=== PATIENT | male | born 1955 | race Caucasian/White ===

== ENCOUNTER → 2019-09-14 | Outpatient (REF) | payer BC ==
[2019-09-14 19:44] LABS: PROSTATIC SPECIFIC AG MONITOR 4.3 NG/ML (< 4.00)
== END ==
LOC: M LABDRWAD 19:20
DX: R97.20 Elevated prostate specific antigen [PSA] (principal)

== ENCOUNTER → 2020-04-11 | Outpatient (REF) | payer BC | LOC: M LABDRWAD 16:26 | PROVIDERS: ATTEND Urology | DX: R97.20 Elevated prostate specific antigen [PSA] (principal) ==

== ENCOUNTER → 2020-05-17 | Outpatient (REF) | payer BC ==
[2020-05-17 14:28] LABS: ALBUMIN 3.5 GM/DL (3.2-5.2); ALT/SGPT 29 U/L (12-78); BILIRUBIN,TOTAL 0.8 MG/DL (0.2-1.0); BLOOD UREA NITROGEN 14 MG/DL (7-18); CALCIUM LEVEL 9.2 MG/DL (8.8-10.2); CARBON DIOXIDE LEVEL 31 MEQ/L (21-32); CHLORIDE LEVEL 105 MEQ/L (98-107); CHOLESTEROL LEVEL 193 MG/DL (<200); CHOLESTEROL RISK RATIO 4.707 (<5); CREATININE FOR GFR 0.93 MG/DL (0.70-1.30); GLOMERULAR FILTRATION RATE > 60.0 (>49); GLUCOSE, FASTING 83 MG/DL (70-100); HDL CHOLESTEROL 41 MG/DL (>40); LDL CHOLESTEROL 128 MG/DL (<100); NON-HDL-C 152 MG/DL; POTASSIUM SERUM 4.7 MEQ/L (3.5-5.1); SODIUM LEVEL 139 MEQ/L (136-145); TOTAL PROTEIN 6.4 GM/DL (6.4-8.2); TRIGLYCERIDES LEVEL 121 MG/DL (<150)
[2020-05-17 15:09] LABS: HEPATITIS C VIRUS ABY INDEX 0.2 INDEX (<0.8)
[2020-05-17 15:24] LABS: HEMOGLOBIN A1c 5.3 %
== END ==
LOC: M LABDRWAD 12:07
DX: E78.00 Pure hypercholesterolemia, unspecified (principal); I10 Essential (primary) hypertension; Z13.1 Encounter for screening for diabetes mellitus; Z20.5 Contact with and (suspected) exposure to viral hepatitis

== ENCOUNTER → 2020-09-14 | Outpatient (REF) | payer BC ==
[2020-09-14 17:29] LABS: PROSTATIC SPECIFIC AG MONITOR 4.95 NG/ML (< 4.00)
== END ==
LOC: M LABDRWAD 16:31
PROVIDERS: ATTEND Urology
DX: R97.20 Elevated prostate specific antigen [PSA] (principal)

== ENCOUNTER → 2021-10-04 | Outpatient (REF) | payer MEDICARE, BC ==
[2021-10-04 12:45] LABS: HEMATOCRIT 52.5 % (42.0-52.0); HEMOGLOBIN 17.5 g/dl (13.5-17.5); MEAN CORPUSCULAR HGB CONC 33.3 g/dl (32.0-36.5); MEAN CORPUSCULAR VOLUME 84.1 fl (80.0-96.0); PLATELET COUNT, AUTOMATED 282 10^3/uL (150-450); RED BLOOD COUNT 6.24 10^6/uL (4.30-6.10); WHITE BLOOD COUNT 6.9 10^3/uL (4.0-10.0)
[2021-10-04 13:00] LABS: HEMOGLOBIN A1c 5.3 %
[2021-10-04 13:14] LABS: ALBUMIN 3.5 GM/DL (3.2-5.2); ALT/SGPT 30 U/L (12-78); BILIRUBIN,TOTAL 0.8 MG/DL (0.2-1.0); BLOOD UREA NITROGEN 19 MG/DL (7-18); CALCIUM LEVEL 8.8 MG/DL (8.8-10.2); CARBON DIOXIDE LEVEL 33 MEQ/L (21-32); CHLORIDE LEVEL 103 MEQ/L (98-107); CHOLESTEROL LEVEL 185 MG/DL (<200); CREATININE FOR GFR 1.14 MG/DL (0.70-1.30); FREE T4 0.87 NG/DL (0.76-1.46); GLOMERULAR FILTRATION RATE > 60.0 (>49); GLUCOSE, FASTING 92 MG/DL (70-100); HDL CHOLESTEROL 37 MG/DL (>40); LDL CHOLESTEROL 130 MG/DL (<100); NON-HDL-C 148 MG/DL; POTASSIUM SERUM 4.7 MEQ/L (3.5-5.1); SODIUM LEVEL 139 MEQ/L (136-145); TOTAL PROTEIN 6.3 GM/DL (6.4-8.2); TRIGLYCERIDES LEVEL 90 MG/DL (<150)
[2021-10-04 13:21] LABS: MALB URINE SIEMENS 19.1 MG/L; MAU/CREAT RATIO 11.4 MCG/MG (0.0-30.0)
== END ==
LOC: M SFHCADAM 09:37
PROVIDERS: ATTEND Physician Assistant
DX: Z12.5 Encounter for screening for malignant neoplasm of prostate (principal); Z13.220 Encounter for screening for lipoid disorders; I10 Essential (primary) hypertension; Z13.1 Encounter for screening for diabetes mellitus
CPT/HCPCS: 80053; 80061; 82043; 83036; 84439; 84443; 85027; G0103

== ENCOUNTER → 2021-11-15 | Outpatient (REF) | payer MEDICARE, BC | LOC: M SFHCADAM 10:26 | PROVIDERS: ATTEND Physician Assistant | DX: R97.20 Elevated prostate specific antigen [PSA] (principal) ==

== ENCOUNTER 2022-01-08 08:51 | Inpatient (IN) | payer BC, MEDICARE ==
[~2022-01-08] VITALS: Ht 182.9 cm; Wt 129.6 kg
[2022-01-08] MEDS ORDERED: CLON-589 PO (08:59)
[2022-01-08] MEDS ORDERED: TAMS1CAP17 PO (08:59)
[2022-01-08] MEDS ORDERED: LOSA100T5 PO (08:59)
[2022-01-08] MEDS ORDERED: AMLO1TAB24 PO (08:59)
[2022-01-08] MEDS ORDERED: PRED20TA PO (08:59)
[2022-01-08] MEDS ORDERED: CEPH500C PO (08:59)
[2022-01-08] MEDS ORDERED: cefTRIAXone SOD 1 GM in D5W MINI-BAG PLUS 50 ML IV ONE (09:20)
[2022-01-08 09:44] LABS: BASO % 0.2 % (0.0-1.0); HEMATOCRIT 48.6 % (42.0-52.0); HEMOGLOBIN 16.4 g/dl (13.5-17.5); LYMPH # 0.6 10^3/uL (1.5-5.0); LYMPH % 5.4 % (24.0-44.0); MEAN CORPUSCULAR HEMOGLOBIN 29.3 pg (27.0-33.0); MEAN CORPUSCULAR HGB CONC 33.7 g/dl (32.0-36.5); MEAN CORPUSCULAR VOLUME 86.8 fl (80.0-96.0); MONO # 0.8 10^3/uL (0.0-0.8); MONO % 6.5 % (2.0-8.0); NEUTROPHILS # 10.1 10^3/uL (1.5-8.5); NEUTROPHILS % 87.6 % (36.0-66.0); PLATELET COUNT, AUTOMATED 221 10^3/uL (150-450); WHITE BLOOD COUNT 11.6 10^3/uL (4.0-10.0)
[2022-01-08 10:16] LABS: ALBUMIN 2.6 GM/DL (3.2-5.2); BILIRUBIN,DIRECT 0.1 MG/DL (0.0-0.2); BILIRUBIN,TOTAL 0.4 MG/DL (0.2-1.0); C REACTIVE PROTEIN QUANTITATIV 6.92 MG/DL (0.00-0.30); ERYTHROCYTE SEDIMENTATION RATE 12 mm/hr (0-20); TOTAL PROTEIN 5.6 GM/DL (6.4-8.2)
[2022-01-08] MEDS ORDERED: NS 1,000 ML IV ONE (10:25)
[2022-01-08 11:33] LABS: RSV AMPLIFICATION NEGATIVE (NEGATIVE)
[2022-01-08] MEDS ORDERED: VANCOMYCIN HCL 1,000 MG, VIAL MATE ADAPTER 1 EACH in NS 250 ML IV SCH (11:40)
[2022-01-08] MEDS ORDERED: PERCOCET 5MG/325MG TAB PO PRN ×2 (12:00)
[2022-01-08] MEDS: NS 1,000 ML IV SCH ×2 (12:00→23:22)
[2022-01-08] MEDS ORDERED: HYDR2.5C TOP (12:10)
[2022-01-08] MEDS ORDERED: HOME MED LIST COMPLETE! XX SCH (12:15)
[2022-01-08] MEDS: PIPERACILLIN/TAZOBACTAM SOD 3.375 GM in D5W MINI-BAG PLUS 50 ML IV SCH ×2 (13:00→18:31)
[2022-01-08 14:50] VITALS: BP 128/75
[2022-01-08] MEDS ORDERED: VANCOMYCIN HCL 1,000 MG, VIAL MATE ADAPTER 1 EACH in NS 250 ML IV ONE ×2 (15:00→16:00)
[2022-01-08 19:13] LABS: INR 0.98; PROTHROMBIN TIME 13.4 SECONDS (12.7-14.5)
[2022-01-08 19:14] LABS: PARTIAL THROMBOPLASTIN TIME 28.5 SECONDS (25.9-37.0)
[2022-01-08] MEDS: amLODIPine 5 MG TAB PO SCH (21:19)
[2022-01-08] MEDS: TAMSULOSIN 0.4 MG CAP PO SCH (21:19)
[2022-01-08] MEDS: cloNIDine 0.05MG 1/2 TABLET PO SCH (21:19)
[2022-01-08 22:00] VITALS: BP 127/68
[2022-01-09] MEDS: PIPERACILLIN/TAZOBACTAM SOD 3.375 GM in D5W MINI-BAG PLUS 50 ML IV SCH ×4 (01:53→18:45)
[2022-01-09] MEDS: VANCOMYCIN HCL 750 MG, VIAL MATE ADAPTER 1 EACH in D5W 250 ML IV SCH ×7 (05:47→23:01)
[2022-01-09 06:24] VITALS: BP 124/76
[2022-01-09 06:40] LABS: HEMATOCRIT 45.6 % (42.0-52.0); HEMOGLOBIN 15.1 g/dl (13.5-17.5); MEAN CORPUSCULAR HEMOGLOBIN 28.8 pg (27.0-33.0); MEAN CORPUSCULAR HGB CONC 33.1 g/dl (32.0-36.5); PLATELET COUNT, AUTOMATED 219 10^3/uL (150-450); RED BLOOD COUNT 5.24 10^6/uL (4.30-6.10)
[2022-01-09 07:24] LABS: ALBUMIN 2.4 GM/DL (3.2-5.2); ALT/SGPT 76 U/L (12-78); BILIRUBIN,TOTAL 0.5 MG/DL (0.2-1.0); BLOOD UREA NITROGEN 16 MG/DL (7-18); CALCIUM LEVEL 7.7 MG/DL (8.8-10.2); CARBON DIOXIDE LEVEL 29 MEQ/L (21-32); CHLORIDE LEVEL 106 MEQ/L (98-107); CREATININE FOR GFR 1.08 MG/DL (0.70-1.30); GLOMERULAR FILTRATION RATE > 60.0 (>49); GLUCOSE, FASTING 94 MG/DL (70-100); POTASSIUM SERUM 3.7 MEQ/L (3.5-5.1); SODIUM LEVEL 141 MEQ/L (136-145); TOTAL PROTEIN 5.2 GM/DL (6.4-8.2)
[2022-01-09 09:00] VITALS: BP 143/73
[2022-01-09] MEDS: cloNIDine 0.05MG 1/2 TABLET PO SCH ×2 (09:04→21:02)
[2022-01-09] MEDS: LOSARTAN 50MG TABLET PO SCH (09:04)
[2022-01-09] MEDS: ENOXAPARIN 40MG/0.4ML SYRINGE (J1650 PER 10MG) SC SCH (09:05)
[2022-01-09] MEDS: TAMSULOSIN 0.4 MG CAP PO SCH ×2 (09:05→21:02)
[2022-01-09 14:00] VITALS: BP 130/80
[2022-01-09] MEDS: ACETAMINOPHEN TAB 650MG DOSE (2X325MG) PO PRN ×2 (15:48→21:02)
[2022-01-09] MEDS ORDERED: PREVNAR 13 VACCINE SYRINGE IM.IMMUN ONE (18:00)
[2022-01-09 21:00] VITALS: BP 131/75
[2022-01-09] MEDS: amLODIPine 5 MG TAB PO SCH (21:01)
[2022-01-10] MEDS: PIPERACILLIN/TAZOBACTAM SOD 3.375 GM in D5W MINI-BAG PLUS 50 ML IV SCH ×4 (01:31→18:13)
[2022-01-10 06:49] VITALS: BP 141/92
[2022-01-10 07:01] LABS: HEMATOCRIT 47.3 % (42.0-52.0); HEMOGLOBIN 15.4 g/dl (13.5-17.5); MEAN CORPUSCULAR HEMOGLOBIN 28.5 pg (27.0-33.0); MEAN CORPUSCULAR HGB CONC 32.6 g/dl (32.0-36.5); MEAN CORPUSCULAR VOLUME 87.4 fl (80.0-96.0); PLATELET COUNT, AUTOMATED 220 10^3/uL (150-450); RED BLOOD COUNT 5.41 10^6/uL (4.30-6.10)
[2022-01-10 07:38] LABS: ALBUMIN 2.3 GM/DL (3.2-5.2); ALT/SGPT 93 U/L (12-78); BILIRUBIN,TOTAL 0.7 MG/DL (0.2-1.0); BLOOD UREA NITROGEN 15 MG/DL (7-18); CALCIUM LEVEL 8.3 MG/DL (8.8-10.2); CARBON DIOXIDE LEVEL 30 MEQ/L (21-32); CHLORIDE LEVEL 104 MEQ/L (98-107); CREATININE FOR GFR 1.22 MG/DL (0.70-1.30); GLOMERULAR FILTRATION RATE > 60.0 (>49); GLUCOSE, FASTING 83 MG/DL (70-100); POTASSIUM SERUM 3.9 MEQ/L (3.5-5.1); SODIUM LEVEL 138 MEQ/L (136-145); TOTAL PROTEIN 5.2 GM/DL (6.4-8.2)
[2022-01-10] MEDS: VANCOMYCIN HCL 750 MG, VIAL MATE ADAPTER 1 EACH in D5W 250 ML IV SCH ×3 (08:41→23:38)
[2022-01-10] MEDS: ENOXAPARIN 40MG/0.4ML SYRINGE (J1650 PER 10MG) SC SCH (08:42)
[2022-01-10] MEDS: cloNIDine 0.05MG 1/2 TABLET PO SCH ×2 (08:42→20:20)
[2022-01-10] MEDS: LOSARTAN 50MG TABLET PO SCH (08:43)
[2022-01-10] MEDS: TAMSULOSIN 0.4 MG CAP PO SCH ×2 (08:43→20:20)
[2022-01-10 14:15] VITALS: BP 133/73
[2022-01-10] MEDS: amLODIPine 5 MG TAB PO SCH (20:20)
[2022-01-10 22:00] VITALS: BP 145/84
[2022-01-11] MEDS: PIPERACILLIN/TAZOBACTAM SOD 3.375 GM in D5W MINI-BAG PLUS 50 ML IV SCH ×4 (03:32→17:57)
[2022-01-11 05:55] LABS: HEMATOCRIT 45.5 % (42.0-52.0); HEMOGLOBIN 15.2 g/dl (13.5-17.5); MEAN CORPUSCULAR HEMOGLOBIN 29.3 pg (27.0-33.0); MEAN CORPUSCULAR HGB CONC 33.4 g/dl (32.0-36.5); MEAN CORPUSCULAR VOLUME 87.7 fl (80.0-96.0); PLATELET COUNT, AUTOMATED 245 10^3/uL (150-450); RED BLOOD COUNT 5.19 10^6/uL (4.30-6.10); WHITE BLOOD COUNT 8.4 10^3/uL (4.0-10.0)
[2022-01-11 06:00] VITALS: BP 119/75
[2022-01-11 06:25] LABS: ALBUMIN 2.3 GM/DL (3.2-5.2); ALT/SGPT 85 U/L (12-78); BILIRUBIN,TOTAL 0.6 MG/DL (0.2-1.0); BLOOD UREA NITROGEN 13 MG/DL (7-18); C REACTIVE PROTEIN QUANTITATIV 3.09 MG/DL (0.00-0.30); CALCIUM LEVEL 8.3 MG/DL (8.8-10.2); CARBON DIOXIDE LEVEL 31 MEQ/L (21-32); CHLORIDE LEVEL 105 MEQ/L (98-107); CREATININE FOR GFR 1.14 MG/DL (0.70-1.30); GLOMERULAR FILTRATION RATE > 60.0 (>49); GLUCOSE, FASTING 99 MG/DL (70-100); POTASSIUM SERUM 3.8 MEQ/L (3.5-5.1); SODIUM LEVEL 136 MEQ/L (136-145); TOTAL PROTEIN 5.6 GM/DL (6.4-8.2)
[2022-01-11 06:43] LABS: ERYTHROCYTE SEDIMENTATION RATE 18 mm/hr (0-20)
[2022-01-11 08:00] VITALS: BP 130/94
[2022-01-11] MEDS: VANCOMYCIN HCL 750 MG, VIAL MATE ADAPTER 1 EACH in D5W 250 ML IV SCH ×3 (09:54→23:07)
[2022-01-11] MEDS: cloNIDine 0.05MG 1/2 TABLET PO SCH ×2 (09:55→21:12)
[2022-01-11] MEDS: TAMSULOSIN 0.4 MG CAP PO SCH ×2 (09:59→21:12)
[2022-01-11] MEDS: LOSARTAN 50MG TABLET PO SCH (09:59)
[2022-01-11] MEDS: ENOXAPARIN 40MG/0.4ML SYRINGE (J1650 PER 10MG) SC SCH (10:00)
[2022-01-11 13:56] VITALS: BP 136/78
[2022-01-11] MEDS: amLODIPine 5 MG TAB PO SCH (21:12)
[2022-01-11 22:00] VITALS: BP 141/80
[2022-01-12] MEDS: PIPERACILLIN/TAZOBACTAM SOD 3.375 GM in D5W MINI-BAG PLUS 50 ML IV SCH ×4 (01:27→18:39)
[2022-01-12 06:00] VITALS: BP 140/87
[2022-01-12 06:02] LABS: HEMATOCRIT 47.7 % (42.0-52.0); HEMOGLOBIN 15.5 g/dl (13.5-17.5); MEAN CORPUSCULAR HEMOGLOBIN 28.5 pg (27.0-33.0); MEAN CORPUSCULAR HGB CONC 32.5 g/dl (32.0-36.5); MEAN CORPUSCULAR VOLUME 87.8 fl (80.0-96.0); PLATELET COUNT, AUTOMATED 263 10^3/uL (150-450); RED BLOOD COUNT 5.43 10^6/uL (4.30-6.10); WHITE BLOOD COUNT 7.5 10^3/uL (4.0-10.0)
[2022-01-12 06:38] LABS: ALBUMIN 2.4 GM/DL (3.2-5.2); ALT/SGPT 80 U/L (12-78); BILIRUBIN,TOTAL 0.6 MG/DL (0.2-1.0); BLOOD UREA NITROGEN 14 MG/DL (7-18); CALCIUM LEVEL 8.4 MG/DL (8.8-10.2); CARBON DIOXIDE LEVEL 31 MEQ/L (21-32); CHLORIDE LEVEL 106 MEQ/L (98-107); CREATININE FOR GFR 1.19 MG/DL (0.70-1.30); GLOMERULAR FILTRATION RATE > 60.0 (>49); GLUCOSE, FASTING 93 MG/DL (70-100); POTASSIUM SERUM 3.9 MEQ/L (3.5-5.1); SODIUM LEVEL 138 MEQ/L (136-145); TOTAL PROTEIN 5.7 GM/DL (6.4-8.2)
[2022-01-12] MEDS ORDERED: FUROSEMIDE 40MG/4ML VIAL (J1940) IV ONE (09:00)
[2022-01-12] MEDS: VANCOMYCIN HCL 750 MG, VIAL MATE ADAPTER 1 EACH in D5W 250 ML IV SCH (09:15)
[2022-01-12] MEDS: LOSARTAN 50MG TABLET PO SCH (09:19)
[2022-01-12] MEDS: cloNIDine 0.05MG 1/2 TABLET PO SCH ×2 (09:19→20:28)
[2022-01-12] MEDS: TAMSULOSIN 0.4 MG CAP PO SCH ×2 (09:20→20:28)
[2022-01-12] MEDS: ENOXAPARIN 40MG/0.4ML SYRINGE (J1650 PER 10MG) SC SCH (09:20)
[2022-01-12 14:00] VITALS: BP 124/76
[2022-01-12] MEDS: VANCOMYCIN HCL 1,000 MG, VIAL MATE ADAPTER 1 EACH in D5W 250 ML IV SCH (16:21)
[2022-01-12] MEDS: amLODIPine 5 MG TAB PO SCH (20:29)
[2022-01-12 23:37] VITALS: BP 135/81
[2022-01-13] MEDS: VANCOMYCIN HCL 1,000 MG, VIAL MATE ADAPTER 1 EACH in D5W 250 ML IV SCH ×2 (00:13→09:58)
[2022-01-13] MEDS: PIPERACILLIN/TAZOBACTAM SOD 3.375 GM in D5W MINI-BAG PLUS 50 ML IV SCH ×2 (01:33→06:06)
[2022-01-13 06:15] VITALS: BP 132/83
[2022-01-13 07:10] LABS: HEMATOCRIT 47.5 % (42.0-52.0); HEMOGLOBIN 15.7 g/dl (13.5-17.5); MEAN CORPUSCULAR HEMOGLOBIN 29.1 pg (27.0-33.0); MEAN CORPUSCULAR HGB CONC 33.1 g/dl (32.0-36.5); PLATELET COUNT, AUTOMATED 283 10^3/uL (150-450); WHITE BLOOD COUNT 5.8 10^3/uL (4.0-10.0)
[2022-01-13 07:15] VITALS: BP 132/82
[2022-01-13 07:43] LABS: BLOOD UREA NITROGEN 15 MG/DL (7-18); CALCIUM LEVEL 8.4 MG/DL (8.8-10.2); CARBON DIOXIDE LEVEL 29 MEQ/L (21-32); CHLORIDE LEVEL 106 MEQ/L (98-107); CREATININE FOR GFR 1.18 MG/DL (0.70-1.30); GLOMERULAR FILTRATION RATE > 60.0 (>49); GLUCOSE, FASTING 88 MG/DL (70-100); POTASSIUM SERUM 4.3 MEQ/L (3.5-5.1); SODIUM LEVEL 138 MEQ/L (136-145)
[2022-01-13 07:44] LABS: ALBUMIN 2.5 GM/DL (3.2-5.2); ALT/SGPT 86 U/L (12-78); BILIRUBIN,TOTAL 0.6 MG/DL (0.2-1.0); TOTAL PROTEIN 5.5 GM/DL (6.4-8.2)
[2022-01-13] MEDS ORDERED: DOXY-350 PO (09:31)
[2022-01-13] MEDS: ENOXAPARIN 40MG/0.4ML SYRINGE (J1650 PER 10MG) SC SCH (09:36)
[2022-01-13 09:37] VITALS: BP 132/83
[2022-01-13] MEDS: LOSARTAN 50MG TABLET PO SCH (09:37)
[2022-01-13] MEDS: cloNIDine 0.05MG 1/2 TABLET PO SCH (09:37)
[2022-01-13] MEDS: TAMSULOSIN 0.4 MG CAP PO SCH (09:37)
[2022-01-13] MEDS ORDERED: EQL1CAP9 PO (10:32)
== END 2022-01-13 13:30 | disposition home or self-care (01) | DRG 872 ==
LOC: M ED 08:51 → M ED INP 11:36 → ENRESERV 13:38 → M MS5PR 14:45
PROVIDERS: ADMIT Internal Medicine; ATTEND Internal Medicine Nephrology
DX: A41.9 Sepsis, unspecified organism (principal); L03.115 Cellulitis of right lower limb; L97.319 Non-pressure chronic ulcer of right ankle with unspecified severity; N40.1 Benign prostatic hyperplasia with lower urinary tract symptoms; I10 Essential (primary) hypertension; R33.9 Retention of urine, unspecified; I87.2 Venous insufficiency (chronic) (peripheral); E66.9 Obesity, unspecified; I83.90 Asymptomatic varicose veins of unspecified lower extremity; R21 Rash and other nonspecific skin eruption; R74.01 Elevation of levels of liver transaminase levels; T36.95XA Adverse effect of unspecified systemic antibiotic, initial encounter; G47.33 Obstructive sleep apnea (adult) (pediatric); Z96.642 Presence of left artificial hip joint; Z79.52 Long term (current) use of systemic steroids; Z79.899 Other long term (current) drug therapy

== ENCOUNTER → 2022-01-24 | Outpatient (REF) | payer MEDICARE ==
[~2022-01-24] MED LIST: AMLO1TAB24 PO; CEPH500C PO; CLON-589 PO; DOXY-350 PO; EQL1CAP9 PO; HYDR2.5C TOP; LOSA100T5 PO; PRED20TA PO; TAMS1CAP17 PO
[2022-01-24 18:29] LABS: ALBUMIN 3.3 GM/DL (3.2-5.2); BILIRUBIN,TOTAL 0.7 MG/DL (0.2-1.0); CALCIUM LEVEL 8.6 MG/DL (8.8-10.2); CREATININE FOR GFR 1.3 MG/DL (0.70-1.30); POTASSIUM SERUM 4.1 MEQ/L (3.5-5.1); TOTAL PROTEIN 6.3 GM/DL (6.4-8.2)
[2022-01-27 23:07] LABS: PSA % FREE 15.9 % (.); PSA FREE 1.57 ng/mL; PSA TOTAL 9.9 ng/mL (0.0-4.0)
== END ==
LOC: M SFHCADAM 11:26
PROVIDERS: ATTEND Physician Assistant
DX: R97.20 Elevated prostate specific antigen [PSA] (principal); L03.115 Cellulitis of right lower limb; R60.0 Localized edema; I10 Essential (primary) hypertension

== ENCOUNTER → 2022-02-04 | Outpatient (REF) | payer MEDICARE ==
[2022-02-04 17:31] LABS: BLOOD UREA NITROGEN 19 MG/DL (7-18); CARBON DIOXIDE LEVEL 31 MEQ/L (21-32); CHLORIDE LEVEL 102 MEQ/L (98-107); CREATININE FOR GFR 1.24 MG/DL (0.70-1.30); GLOMERULAR FILTRATION RATE > 60.0 (>49); GLUCOSE, FASTING 131 MG/DL (70-100); POTASSIUM SERUM 3.7 MEQ/L (3.5-5.1); SODIUM LEVEL 137 MEQ/L (136-145)
== END ==
LOC: M SFHCADAM 14:18
PROVIDERS: ATTEND Physician Assistant
DX: R60.0 Localized edema (principal)

== ENCOUNTER → 2022-05-05 | Outpatient (REF) | payer MEDICARE ==
[~2022-05-05] MED LIST changes: -DOXY-350 PO; +DOXY-444 PO
== END ==
LOC: M SFHCADAM 10:47
PROVIDERS: ATTEND Physician Assistant
DX: R97.20 Elevated prostate specific antigen [PSA] (principal)

== ENCOUNTER 2022-05-12 21:49 | Emergency (ER) | payer MEDICARE ==
[~2022-05-12] VITALS: Ht 182.9 cm; Wt 129.6 kg
[2022-05-13] MEDS ORDERED: LIDOCAINE 2% 5ML JELLY UROJET TOP ONE
[2022-05-13 01:41] VITALS: BP 154/91
== END 2022-05-13 01:43 | disposition home or self-care (01) ==
LOC: M ED 21:49
DX: N40.1 Benign prostatic hyperplasia with lower urinary tract symptoms (principal); I10 Essential (primary) hypertension; Z96.642 Presence of left artificial hip joint; Z79.899 Other long term (current) drug therapy

== ENCOUNTER → 2022-05-22 | Outpatient (REF) | payer MEDICARE ==
[2022-05-22 15:47] LABS: HEMATOCRIT 42.7 % (42.0-52.0); HEMOGLOBIN 14.2 g/dl (13.5-17.5); MEAN CORPUSCULAR HEMOGLOBIN 29.8 pg (27.0-33.0); MEAN CORPUSCULAR HGB CONC 33.3 g/dl (32.0-36.5); MEAN CORPUSCULAR VOLUME 89.5 fl (80.0-96.0); PLATELET COUNT, AUTOMATED 279 10^3/uL (150-450); RED BLOOD COUNT 4.77 10^6/uL (4.30-6.10); WHITE BLOOD COUNT 4.6 10^3/uL (4.0-10.0)
[2022-05-22 15:49] LABS: BLOOD UREA NITROGEN 20 MG/DL (9-23); CALCIUM LEVEL 8.8 MG/DL (8.3-10.6); CARBON DIOXIDE LEVEL 30 MMOL/L (20-31); CHLORIDE LEVEL 104 MMOL/L (98-107); CREATININE FOR GFR 0.91 MG/DL (0.70-1.30); GLOMERULAR FILTRATION RATE > 60.0 (>49); GLUCOSE, FASTING 89 MG/DL (74-106); POTASSIUM SERUM 4.3 MMOL/L (3.5-5.1); SODIUM LEVEL 141 MMOL/L (136-145)
[2022-05-22 16:19] LABS: ALBUMIN 3.5 G/DL (3.2-5.2); ALKALINE PHOSPHATASE 85 U/L (46-116); ALT/SGPT 25 U/L (7.0-40); AST/SGOT 17 U/L (<34); BILIRUBIN,TOTAL 0.8 MG/DL (0.3-1.2); BLOOD UREA NITROGEN 21 MG/DL (9-23); CALCIUM LEVEL 8.8 MG/DL (8.3-10.6); CARBON DIOXIDE LEVEL 26 MMOL/L (20-31); CHLORIDE LEVEL 104 MMOL/L (98-107); CHOLESTEROL LEVEL 175 MG/DL (<200); CHOLESTEROL RISK RATIO 4.34 (<5); CREATININE FOR GFR 0.92 MG/DL (0.70-1.30); CREATININE, URINE 75.4 MG/DL; GLOMERULAR FILTRATION RATE > 60.0 (>49); GLUCOSE, FASTING 84 MG/DL (74-106); HDL CHOLESTEROL 40.3 MG/DL (>40); LDL CHOLESTEROL 108.5 MG/DL (<100); MAU/CREAT RATIO 14.5 MCG/MG (0.0-30.0); NON-HDL-C 135 MG/DL; POTASSIUM SERUM 4.6 MMOL/L (3.5-5.1); SODIUM LEVEL 141 MMOL/L (136-145); TOTAL PROTEIN 5.9 G/DL (5.7-8.2); TRIGLYCERIDES LEVEL 131 MG/DL (<150)
[2022-05-22 16:24] LABS: THYROID STIMULATING HORMONE 1.364 uIU/ML (0.55-4.78)
[2022-05-22 16:25] LABS: FREE T4 1.04 NG/DL (0.89-1.76)
[2022-05-22 16:34] LABS: HEMOGLOBIN A1c 4.9 % (4.0-6.0)
== END ==
LOC: M SFHCADAM 08:05
PROVIDERS: ATTEND Physician Assistant
DX: I10 Essential (primary) hypertension (principal); G47.33 Obstructive sleep apnea (adult) (pediatric); E78.00 Pure hypercholesterolemia, unspecified; Z13.1 Encounter for screening for diabetes mellitus; R97.20 Elevated prostate specific antigen [PSA]; R60.0 Localized edema
CPT/HCPCS: 80048; 80053; 80061; 82043; 83036; 84439; 84443; 85027; G0103

== ENCOUNTER → 2022-06-03 | Outpatient (REF) | payer MEDICARE ==
[2022-06-03 16:17] LABS: APPEARANCE, URINE MANUAL HAZY (CLEAR); BILIRUBIN, URINE MANUAL NEGATIVE (NEGATIVE); BLOOD URINE MANUAL TRACE (NEGATIVE); COLOR, URINE MANUAL YELLOW (YELLOW); GLUCOSE, URINE (UA) MANUAL NEGATIVE (NEGATIVE); KETONE, URINE MANUAL NEGATIVE (NEGATIVE); LEUKOCYTE ESTERASE, URINE MAN POSITIVE (NEGATIVE); NITRITE, URINE MANUAL POSITIVE (NEGATIVE); PROTEIN, URINE MANUAL TRACE mg/dL (NEGATIVE); UROBILINOGEN, URINE MANUAL NORMAL (NORMAL)
[2022-06-03 16:21] LABS: HEMATOCRIT 42.4 % (42.0-52.0); HEMOGLOBIN 14.4 g/dl (13.5-17.5); MEAN CORPUSCULAR HEMOGLOBIN 30.1 pg (27.0-33.0); MEAN CORPUSCULAR VOLUME 88.5 fl (80.0-96.0); PLATELET COUNT, AUTOMATED 253 10^3/uL (150-450); RED BLOOD COUNT 4.79 10^6/uL (4.30-6.10); WHITE BLOOD COUNT 6.1 10^3/uL (4.0-10.0)
[2022-06-03 16:32] LABS: INR 0.98; PROTHROMBIN TIME 13.2 SECONDS (12.5-14.5)
[2022-06-03 16:49] LABS: ALBUMIN 3.4 G/DL (3.2-5.2); ALKALINE PHOSPHATASE 123 U/L (46-116); ALT/SGPT 35 U/L (7.0-40); AST/SGOT 26 U/L (<34); BILIRUBIN,TOTAL 0.7 MG/DL (0.3-1.2); BLOOD UREA NITROGEN 16 MG/DL (9-23); CARBON DIOXIDE LEVEL 30 MMOL/L (20-31); CHLORIDE LEVEL 101 MMOL/L (98-107); CREATININE FOR GFR 0.93 MG/DL (0.70-1.30); GLOMERULAR FILTRATION RATE > 60.0 (>49); GLUCOSE, FASTING 88 MG/DL (74-106); POTASSIUM SERUM 4.4 MMOL/L (3.5-5.1); SODIUM LEVEL 139 MMOL/L (136-145); TOTAL PROTEIN 6.6 G/DL (5.7-8.2)
[2022-06-03 18:01] LABS: WBC, URINE TNTC /hpf (0-3)
[2022-06-03 18:02] LABS: BACTERIA, URINE LARGE AMOUNT; SQUAMOUS EPITHELIAL CELL URINE SMALL AMOUNT /hpf (SMALL AMT)
== END ==
LOC: M SFHCADAM 11:35
PROVIDERS: ATTEND Physician Assistant
DX: N40.0 Benign prostatic hyperplasia without lower urinary tract symptoms (principal); R30.0 Dysuria

== ENCOUNTER → 2022-07-09 | Outpatient (CLI) | payer MEDICARE ==
[~2022-07-09] MED LIST changes: +FURO40TA2 PO; +LOSA100T45 PO; +VITMTA PO
[2022-07-09 15:20] LABS: APPEARANCE, URINE MANUAL CLEAR (CLEAR); COLOR, URINE MANUAL YELLOW (YELLOW)
[2022-07-09 15:22] LABS: BILIRUBIN, URINE MANUAL NEGATIVE (NEGATIVE); BLOOD URINE MANUAL NEGATIVE (NEGATIVE); GLUCOSE, URINE (UA) MANUAL NEGATIVE (NEGATIVE); KETONE, URINE MANUAL NEGATIVE (NEGATIVE); LEUKOCYTE ESTERASE, URINE MAN NEGATIVE (NEGATIVE); NITRITE, URINE MANUAL NEGATIVE (NEGATIVE); PROTEIN, URINE MANUAL NEGATIVE (NEGATIVE); UROBILINOGEN, URINE MANUAL NORMAL (NORMAL)
== END ==
LOC: M ADAMS 13:13
PROVIDERS: ATTEND Urology
DX: Z01.818 Encounter for other preprocedural examination (principal); N40.0 Benign prostatic hyperplasia without lower urinary tract symptoms

== ENCOUNTER → 2022-07-13 | Outpatient (CLI) | payer MEDICARE | LOC: M LABSMTC 10:06 | PROVIDERS: ATTEND Anesthesiology | DX: Z20.822 Contact with and (suspected) exposure to COVID-19 (principal) ==

== ENCOUNTER 2022-07-18 08:33 | Day surgery (SDC) | payer MEDICARE ==
[~2022-07-18] VITALS: Ht 182.9 cm; Wt 124.3 kg
[~2022-07-18 08:33] MED LIST changes: +GLYCOPYRROLATE INJ 0.2 MG/ML 2 ML VIAL As Ordered ONE; +LIDOCAINE 2% 100MG/5ML SDV (FOR ANES.) As Ordered ONE; +ONDANSETRON 4MG 2ML VIAL As Ordered ONE; +propofoL 200 MG/20 ML VIAL As Ordered ONE
[2022-07-18] MEDS ORDERED: LR 1,000 ML IV SCH ×2 (09:00→11:55)
[2022-07-18] MEDS ORDERED: fentaNYL 100 MCG/2 ML INJECTION As Ordered ONE ×2 (09:38→11:07)
[2022-07-18] MEDS ORDERED: MIDAZOLAM INJ 2MG/2ML VIAL As Ordered ONE (09:39)
[2022-07-18] MEDS ORDERED: ceFAZolin SOD 1 GM in D5W MINI-BAG PLUS 50 ML IV ONE (10:25)
[2022-07-18] MEDS ORDERED: ceFAZolin SOD 2 GM in IV 1 EA IV ONE (10:25)
[2022-07-18] MEDS ORDERED: ACETAMINOPHEN 1000MG 100ML IV BAG As Ordered ONE (11:25)
[2022-07-18] MEDS ORDERED: SUGAMMADEX SODIUM 500 MG/5 ML VIAL (BRIDION) As Ordered ONE (11:36)
[2022-07-18] MEDS ORDERED: fentaNYL 100 MCG/2 ML INJECTION IV PRN (11:55)
[2022-07-18] MEDS ORDERED: ONDANSETRON 4MG 2ML VIAL IV PRN (11:55)
[2022-07-18] MEDS ORDERED: oxyCODONE 5MG TAB PO PRN (11:55)
[2022-07-18] MEDS ORDERED: METOCLOPRAMIDE INJ 10MG/2ML VIAL IV PRN (11:55)
[2022-07-18] MEDS ORDERED: MACR100C43 PO (11:55)
[2022-07-18] MEDS ORDERED: OXYB5TAB10 PO (11:55)
[2022-07-18] MEDS ORDERED: PYRI1TAB5 PO (11:55)
[2022-07-18 13:20] VITALS: BP 142/83
== END 2022-07-18 13:45 | disposition home or self-care (01) ==
LOC: M SDC 08:33
PROVIDERS: ATTEND Urology
DX: N40.1 Benign prostatic hyperplasia with lower urinary tract symptoms (principal); I10 Essential (primary) hypertension; M19.90 Unspecified osteoarthritis, unspecified site; Z79.899 Other long term (current) drug therapy
CPT/HCPCS: 52601; 88305; J0690; J1100; J2250; J2405; J3010

== ENCOUNTER → 2022-11-20 | Outpatient (REF) | payer MEDICARE ==
[~2022-11-20] MED LIST changes: -GLYCOPYRROLATE INJ 0.2 MG/ML 2 ML VIAL As Ordered ONE; -LIDOCAINE 2% 100MG/5ML SDV (FOR ANES.) As Ordered ONE; -LOSA100T45 PO; +LOSA100T46 PO; +MACR100C43 PO; -ONDANSETRON 4MG 2ML VIAL As Ordered ONE; +OXYB5TAB10 PO; +PYRI1TAB5 PO; -propofoL 200 MG/20 ML VIAL As Ordered ONE
[2022-11-20 14:12] LABS: BLOOD UREA NITROGEN 19 MG/DL (9-23); CALCIUM LEVEL 9.1 MG/DL (8.3-10.6); CARBON DIOXIDE LEVEL 33 MMOL/L (20-31); CHLORIDE LEVEL 106 MMOL/L (98-107); GLOMERULAR FILTRATION RATE > 60.0 (>49); GLUCOSE, FASTING 86 MG/DL (74-106); SODIUM LEVEL 143 MMOL/L (136-145)
== END ==
LOC: M SFHCADAM 08:06
PROVIDERS: ATTEND Physician Assistant
DX: I10 Essential (primary) hypertension (principal); I87.2 Venous insufficiency (chronic) (peripheral)

== ENCOUNTER → 2023-04-07 | Outpatient (REF) | payer MEDICARE ==
[~2023-04-07] MED LIST changes: -OXYB5TAB10 PO; +OXYB5TAB11 PO
[2023-04-07 14:12] LABS: PROSTATIC SPECIFIC AG MONITOR 2.81 NG/ML (< 4.00)
== END ==
LOC: M SFHCADAM 08:41
PROVIDERS: ATTEND Physician Assistant
DX: N52.8 Other male erectile dysfunction (principal); R97.20 Elevated prostate specific antigen [PSA]

== ENCOUNTER → 2023-05-21 | Outpatient (REF) | payer MEDICARE ==
[2023-05-21 15:42] LABS: HEMATOCRIT 44.3 % (42.0-52.0); HEMOGLOBIN 14.8 g/dl (13.5-17.5); MEAN CORPUSCULAR HEMOGLOBIN 29.5 pg (27.0-33.0); MEAN CORPUSCULAR HGB CONC 33.4 g/dl (32.0-36.5); MEAN CORPUSCULAR VOLUME 88.2 fl (80.0-96.0); PLATELET COUNT, AUTOMATED 290 10^3/uL (150-450); RED BLOOD COUNT 5.02 10^6/uL (4.30-6.10); WHITE BLOOD COUNT 6.2 10^3/uL (4.0-10.0)
[2023-05-21 16:10] LABS: CREATININE, URINE 46.5 MG/DL; MALB URINE SIEMENS < 3.0 MG/L; MAU/CREAT RATIO 6.4 MCG/MG (0.0-30.0)
[2023-05-21 16:11] LABS: ALBUMIN 3.7 G/DL (3.2-5.2); ALKALINE PHOSPHATASE 113 U/L (46-116); ALT/SGPT 26 U/L (7.0-40); AST/SGOT 16 U/L (<34); BILIRUBIN,TOTAL 0.9 MG/DL (0.3-1.2); BLOOD UREA NITROGEN 20 MG/DL (9-23); CARBON DIOXIDE LEVEL 31 MMOL/L (20-31); CHLORIDE LEVEL 104 MMOL/L (98-107); CREATININE FOR GFR 0.96 MG/DL (0.70-1.30); GLOMERULAR FILTRATION RATE > 60.0 (>49); GLUCOSE, FASTING 89 MG/DL (74-106); POTASSIUM SERUM 4.4 MMOL/L (3.5-5.1); SODIUM LEVEL 141 MMOL/L (136-145); TOTAL PROTEIN 6.3 G/DL (5.7-8.2)
[2023-05-21 16:13] LABS: FREE T4 1.13 NG/DL (0.89-1.76); THYROID STIMULATING HORMONE 2.064 uIU/ML (0.55-4.78)
[2023-05-21 16:36] LABS: HEMOGLOBIN A1c 5.3 % (4.0-6.0)
== END ==
LOC: M SFHCADAM 08:08
PROVIDERS: ATTEND Physician Assistant
DX: I10 Essential (primary) hypertension (principal); R60.0 Localized edema; G47.33 Obstructive sleep apnea (adult) (pediatric); E78.00 Pure hypercholesterolemia, unspecified; Z13.1 Encounter for screening for diabetes mellitus; E66.01 Morbid (severe) obesity due to excess calories; Z79.899 Other long term (current) drug therapy

== ENCOUNTER → 2023-06-29 | Outpatient (REF) | payer MEDICARE | LOC: M LAB REF 18:26 | PROVIDERS: ATTEND Surgery | DX: L72.3 Sebaceous cyst (principal) ==

== ENCOUNTER → 2023-11-11 | Outpatient (REF) | payer MEDICARE ==
[~2023-11-11] MED LIST changes: +DOXY-440 PO; -DOXY-444 PO; -OXYB5TAB11 PO; +OXYB5TAB14 PO
[2023-11-11 13:27] LABS: ALBUMIN 3.5 G/DL (3.2-5.2); ALKALINE PHOSPHATASE 128 U/L (46-116); ALT/SGPT 23 U/L (7.0-40); AST/SGOT 9 U/L (<34); BILIRUBIN,TOTAL 0.7 MG/DL (0.3-1.2); BLOOD UREA NITROGEN 13 MG/DL (9-23); CALCIUM LEVEL 9.3 MG/DL (8.3-10.6); CARBON DIOXIDE LEVEL 33 MMOL/L (20-31); CHLORIDE LEVEL 107 MMOL/L (98-107); CREATININE FOR GFR 0.98 MG/DL (0.70-1.30); GLOMERULAR FILTRATION RATE > 60.0 (>49); GLUCOSE, FASTING 97 MG/DL (74-106); POTASSIUM SERUM 4.5 MMOL/L (3.5-5.1); SODIUM LEVEL 142 MMOL/L (136-145); TOTAL PROTEIN 6.3 G/DL (5.7-8.2)
[2023-11-11 13:29] LABS: FREE T4 1.26 NG/DL (0.89-1.76); THYROID STIMULATING HORMONE 0.724 uIU/ML (0.55-4.78)
[2023-11-11 13:39] LABS: HEMATOCRIT 46.9 % (42.0-52.0); HEMOGLOBIN 15.7 g/dl (13.5-17.5); MEAN CORPUSCULAR HGB CONC 33.5 g/dl (32.0-36.5); MEAN CORPUSCULAR VOLUME 86.7 fl (80.0-96.0); PLATELET COUNT, AUTOMATED 274 10^3/uL (150-450); RED BLOOD COUNT 5.41 10^6/uL (4.30-6.10); WHITE BLOOD COUNT 5.8 10^3/uL (4.0-10.0)
[2023-11-11 13:48] LABS: HEMOGLOBIN A1c 5.3 % (4.0-6.0)
[2023-11-11 14:05] LABS: CREATININE, URINE 32.1 MG/DL; MALB URINE SIEMENS < 3.0 MG/L; MAU/CREAT RATIO 9.3 MCG/MG (0.0-30.0)
== END ==
LOC: M SFHCADAM 09:56
PROVIDERS: ATTEND Physician Assistant
DX: I10 Essential (primary) hypertension (principal); G47.33 Obstructive sleep apnea (adult) (pediatric); E78.00 Pure hypercholesterolemia, unspecified; R60.0 Localized edema; Z13.1 Encounter for screening for diabetes mellitus; E66.01 Morbid (severe) obesity due to excess calories

== ENCOUNTER → 2023-12-25 | Outpatient (CLI) | payer MEDICARE | LOC: M PLALAB 14:31 → M PLAIMG 14:31 | PROVIDERS: ATTEND Physician Assistant | DX: J22 Unspecified acute lower respiratory infection (principal) ==

== ENCOUNTER → 2024-05-02 | Outpatient (REF) | payer MEDICARE ==
[2024-05-02 19:37] LABS: ALBUMIN 3.6 G/DL (3.2-5.2); ALKALINE PHOSPHATASE 119 U/L (40-129); ALT/SGPT 36 U/L (7.0-40); AST/SGOT 13 U/L (<34); BILIRUBIN,TOTAL 0.4 MG/DL (0.3-1.2); BLOOD UREA NITROGEN 16 MG/DL (9-23); CALCIUM LEVEL 9.4 MG/DL (8.3-10.6); CARBON DIOXIDE LEVEL 31 MMOL/L (20-31); CHLORIDE LEVEL 104 MMOL/L (98-107); CREATININE FOR GFR 1.01 MG/DL (0.70-1.30); GLOMERULAR FILTRATION RATE > 60.0 (>49); GLUCOSE, FASTING 101 MG/DL (74-106); POTASSIUM SERUM 4.5 MMOL/L (3.5-5.1); SODIUM LEVEL 139 MMOL/L (136-145); TOTAL PROTEIN 6.5 G/DL (5.7-8.2)
== END ==
LOC: M SFHCADAM 14:04
PROVIDERS: ATTEND Physician Assistant
DX: N52.8 Other male erectile dysfunction (principal); R97.20 Elevated prostate specific antigen [PSA]

== ENCOUNTER 2025-05-01 17:26 | Inpatient (IN) | payer MEDICARE ==
[~2025-05-01] VITALS: Ht 182.9 cm; Wt 106.5 kg
[2025-05-01] MEDS ORDERED: ATOR80TA59 PO (17:46)
[2025-05-01] MEDS ORDERED: ASPI-226 PO (17:46)
[2025-05-01] MEDS ORDERED: FURO40TA2 PO (17:56)
[2025-05-01 18:04] LABS: BASO # 0.0 10^3/uL (0.0-0.2); BASO % 0.1 % (0.0-1.0); EOS # 0.0 10^3/uL (0.0-0.5); EOS % 0.0 % (0.0-3.0); LYMPH # 0.4 10^3/uL (1.5-5.0); LYMPH % 1.4 % (24.0-44.0); MONO # 1.2 10^3/uL (0.0-0.8); MONO % 4.3 % (2.0-8.0); NEUTROPHILS # 25.4 10^3/uL (1.5-8.5); NEUTROPHILS % 93.2 % (36.0-66.0); PLATELET COUNT, AUTOMATED 243 10^3/uL (150-450)
[2025-05-01 18:20] LABS: ALT/SGPT 35 U/L (7.0-40); AST/SGOT 26 U/L (<34); CALCIUM LEVEL 8.3 MG/DL (8.3-10.6); CARBON DIOXIDE LEVEL 28 MMOL/L (20-31); CHLORIDE LEVEL 104 MMOL/L (98-107); CREATININE FOR GFR 1.38 MG/DL (0.70-1.30); GLOMERULAR FILTRATION RATE 55.7 (>49); POTASSIUM SERUM 4.1 MMOL/L (3.5-5.1); SODIUM LEVEL 143 MMOL/L (136-145)
[2025-05-01 18:22] LABS: FREE T4 1.15 NG/DL (0.89-1.76)
[2025-05-01 18:25] LABS: CK-MB VALUE MASS < 1.0 NG/ML (<3.6)
[2025-05-01 18:29] LABS: INR 1.0
[2025-05-01 18:44] LABS: KETONE, URINE AUTO RFX TRACE mg/dL (NEGATIVE); LEUKOCYTE ESTERASE UR AUTO RFX NEGATIVE (NEGATIVE); MUCUS, URINE RFX SMALL (NEGATIVE); NITRITE, URINE AUTO RFX NEGATIVE (NEGATIVE); RBC, URINE AUTO RFX 0 /HPF (0-3); SQUAM EPITHELIAL CELL UR AURFX 0 /HPF (0-6); WBC, URINE AUTO RFX 0 /HPF (0-3)
[2025-05-01 18:45] LABS: CPK CREATINE PHOSPHOKINASE 34 U/L (46-171)
[2025-05-01] MEDS: PIPERACILLIN/TAZOBACTAM SOD 4.5 GM in DEXTROSE 5% (D5W) ADV/MINI-BAG 50 ML IV ONE (18:47)
[2025-05-01] MEDS: ACETAMINOPHEN 325 MG TAB PO ONE (18:48)
[2025-05-01] MEDS: VANCOMYCIN HCL 1,000 MG, VIAL MATE ADAPTER 1 EACH in NS 250 ML IV ONE ×2 (19:16→23:14)
[2025-05-01] MEDS ORDERED: NIAC500T29 PO (19:42)
[2025-05-01] MEDS ORDERED: HOME MED LIST COMPLETE! XX SCH (19:45)
[2025-05-01] MEDS ORDERED: MAALOX 30 ML SUSP *UDC PO PRN (21:15)
[2025-05-01] MEDS ORDERED: ACETAMINOPHEN 325 MG TAB PO PRN (21:15)
[2025-05-01] MEDS ORDERED: VANCOMYCIN HCL 1,000 MG, VIAL MATE ADAPTER 1 EACH in NS 250 ML IV SCH (21:15)
[2025-05-01] MEDS ORDERED: MOM 30 ML SUSPENSION UDC PO PRN (21:15)
[2025-05-01] MEDS: NS (Normal Saline) 0.9% 1,000 ML IV STA (21:20)
[2025-05-01] MEDS: DOCUSATE SODIUM 100 MG CAPSULE PO SCH (23:14)
[2025-05-01] MEDS: ATORVASTATIN 20 MG TAB PO SCH (23:14)
[2025-05-02] VITALS (8 sets, daily range): BP systolic 96–121; BP diastolic 57–69; TEMP 97.1–98.6; O2SAT 89–96
[2025-05-02] MEDS: VANCOMYCIN HCL 1,500 MG, VIAL MATE ADAPTER 1 EACH in NS 500 ML IV SCH (04:22)
[2025-05-02 04:59] LABS: C REACTIVE PROTEIN QUANTITATIV 10.78 MG/DL (<1.0)
[2025-05-02 06:10] LABS: PLATELET COUNT, AUTOMATED 164 10^3/uL (150-450)
[2025-05-02 06:28] LABS: CALCIUM LEVEL 7.4 MG/DL (8.3-10.6); CARBON DIOXIDE LEVEL 25.0 MMOL/L (20-31); CHLORIDE LEVEL 108.0 MMOL/L (98-107); CREATININE FOR GFR 1.14 MG/DL (0.70-1.30); GLOMERULAR FILTRATION RATE 70.1 (>49); MAGNESIUM LEVEL 1.6 MG/DL (1.8-2.4); POTASSIUM SERUM 3.8 MMOL/L (3.5-5.1); SODIUM LEVEL 142.0 MMOL/L (136-145)
[2025-05-02] MEDS: MAG SULF 1GM/100ML (MAG RUN) 1 GM in IV 1 EA IV ONE (06:50)
[2025-05-02] MEDS: HEPARIN SOD 5000 UNITS/ML 1 ML VIAL/SYRINGE SC SCH (08:27)
[2025-05-02] MEDS: PANTOPRAZOLE 40MG VIAL IV SCH (08:27)
[2025-05-02] MEDS: ASPIRIN 81 MG ENTERIC TABLET PO SCH (08:27)
[2025-05-02 10:01] LABS: ANTI-STREPTOLYSIN O QUANT 83.5 IU/ML (<195)
[2025-05-02] MEDS: MAG SULF 1GM/100ML (MAG RUN) 1 GM in IV 1 EA IV SCH (10:07)
[2025-05-02] MEDS ORDERED: LOSA50TA28 PO (12:13)
[2025-05-02] MEDS ORDERED: BACI1TAB20 PO (12:21)
[2025-05-02] MEDS ORDERED: CEPH500T PO (12:21)
[2025-05-02] MEDS ORDERED: MAGN500T2 PO (12:47)
== END 2025-05-02 14:17 | disposition home or self-care (01) | DRG 872 ==
LOC: M ED 17:26 → M ED INP 21:13 → M PCU 05-02 04:48
PROVIDERS: ADMIT Student in an Organized Health Care Education/Training Program; ATTEND Internal Medicine
DX: A41.9 Sepsis, unspecified organism (principal); L03.115 Cellulitis of right lower limb; I10 Essential (primary) hypertension; E78.5 Hyperlipidemia, unspecified; G47.33 Obstructive sleep apnea (adult) (pediatric); I87.2 Venous insufficiency (chronic) (peripheral); N40.1 Benign prostatic hyperplasia with lower urinary tract symptoms; E83.42 Hypomagnesemia; R33.9 Retention of urine, unspecified; Z96.642 Presence of left artificial hip joint; Z79.82 Long term (current) use of aspirin; Z79.899 Other long term (current) drug therapy

== ENCOUNTER → 2025-05-10 | Outpatient (REF) | payer MEDICARE ==
[~2025-05-10] MED LIST changes: +ASPI-226 PO; +ATOR80TA59 PO; +BACI1TAB20 PO; +CEPH500T PO; +LOSA50TA28 PO; +MAGN500T2 PO; +NIAC500T29 PO
[2025-05-10 18:15] LABS: BASO # 0.0 10^3/uL (0.0-0.2); BASO % 0.4 % (0.0-1.0); EOS # 0.2 10^3/uL (0.0-0.5); EOS % 3.3 % (0.0-3.0); LYMPH # 1.8 10^3/uL (1.5-5.0); LYMPH % 26.2 % (24.0-44.0); MONO # 0.6 10^3/uL (0.0-0.8); MONO % 8.3 % (2.0-8.0); NEUTROPHILS # 4.1 10^3/uL (1.5-8.5); NEUTROPHILS % 61.2 % (36.0-66.0); PLATELET COUNT, AUTOMATED 331 10^3/uL (150-450)
[2025-05-10 18:42] LABS: C REACTIVE PROTEIN QUANTITATIV 0.55 MG/DL (<1.0)
[2025-05-10 18:46] LABS: ALT/SGPT 109.0 U/L (7.0-40); AST/SGOT 43.0 U/L (<34); CALCIUM LEVEL 9.2 MG/DL (8.3-10.6); CARBON DIOXIDE LEVEL 33.0 MMOL/L (20-31); CHLORIDE LEVEL 99.0 MMOL/L (98-107); CREATININE FOR GFR 1.42 MG/DL (0.70-1.30); GLOMERULAR FILTRATION RATE 53.8 (>49); POTASSIUM SERUM 5.1 MMOL/L (3.5-5.1); SODIUM LEVEL 139.0 MMOL/L (136-145)
== END ==
LOC: M LABSMT 14:12
PROVIDERS: ATTEND Physician Assistant
DX: L03.115 Cellulitis of right lower limb (principal); Z87.898 Personal history of other specified conditions; R60.0 Localized edema

== ENCOUNTER → 2025-05-15 | Outpatient (REF) | payer MEDICARE ==
[2025-05-15 17:12] LABS: ALT/SGPT 60.0 U/L (7.0-40); AST/SGOT 21.0 U/L (<34); CALCIUM LEVEL 9.1 MG/DL (8.3-10.6); CARBON DIOXIDE LEVEL 32.0 MMOL/L (20-31); CHLORIDE LEVEL 104.0 MMOL/L (98-107); CREATININE FOR GFR 1.25 MG/DL (0.70-1.30); GLOMERULAR FILTRATION RATE 62.7 (>49); POTASSIUM SERUM 4.5 MMOL/L (3.5-5.1); SODIUM LEVEL 143.0 MMOL/L (136-145)
== END ==
LOC: M SFHCADAM 14:08
PROVIDERS: ATTEND Physician Assistant
DX: N17.9 Acute kidney failure, unspecified (principal); R60.0 Localized edema